=== PATIENT | female | born 1935 | race African-American/Black ===

== ENCOUNTER → 2017-03-17 | Outpatient (CLI) | payer MEDICARE, OTHER ==
[~2017-03-17] MED LIST: ACET-2178 PO; AMLO5TAB4 PO; ASPI-1159 PO; ATOR20TA65 PO; AZEL6DRO5 EACHEYE; FOLI0.8T23 PO; METF500T4 PO; OLOP2.5D EACHEYE; PROAIR HFA INH; SYSOS EACHEYE; VIT D2 1.25 MG PO
== END | disposition home or self-care (01) ==
LOC: MRI 12:22
PROVIDERS: ATTEND Internal Medicine Nephrology
DX: R27.0 Ataxia, unspecified (principal)
CPT/HCPCS: 70551

== ENCOUNTER 2017-06-16 22:06 | Inpatient (IN) | payer MEDICARE, OTHER ==
[~2017-06-16] VITALS: Ht 162.6 cm; Wt 61.2 kg
[2017-06-16] MEDS ORDERED: SODIUM CHLORIDE 0.9% 500 ML IV ONE (23:37)
[2017-06-17] VITALS (8 sets, daily range): BP systolic 108–135; BP diastolic 64–79
[2017-06-17 00:09] LABS: INR 1.1; PARTIAL THROMBOPLASTIN TIME 26.8 sec (23.4-31.0)
[2017-06-17 00:12] LABS: BASOPHILS % 0.6 % (0.0-2.0); EOSINOPHILS % 1.7 % (0.0-5.0); HEMATOCRIT. 39.9 % (36.0-48.0); HEMOGLOBIN. 13.3 g/dL (12.0-16.0); LYMPHOCYTES % 19.8 % (20.0-50.0); MEAN CORPUSCULAR HEMOGLOBIN 27.7 pg (28.0-32.0); MEAN CORPUSCULAR VOLUME 83.2 fL (81.0-99.0); MEAN PLATELET VOLUME 8.4 fl (7.4-10.4); MONOCYTES % 8.1 % (2.0-8.0); NEUTROPHILS % 69.8 % (40.0-76.0); PLATELET 257 x1000/uL (130-400); RED CELL DISTRIBUTION WIDTH 16.4 % (11.6-14.6)
[2017-06-17 00:16] LABS: CARBON DIOXIDE 24 mEq/L (21-32); CHLORIDE 97 mEq/L (98-107); TROPONIN I < 0.02 ng/mL (0.00-0.04)
[2017-06-17] MEDS ORDERED: ASPIRIN 81MG TABLET PO ONE (02:15)
[2017-06-17 03:34] LABS: CLARITY URINE CLEAR (CLEAR); COLOR URINE YELLOW (YELLOW); GLUCOSE URINE NEGATIVE (NEGATIVE); KETONES URINE NEGATIVE (NEGATIVE); LEUKOCYTE ESTERASE URINE 3+ (NEGATIVE); NITRITE URINE NEGATIVE (NEGATIVE); OCCULT BLOOD URINE NEGATIVE (NEGATIVE); PROTEIN URINE NEGATIVE (NEGATIVE); SPECIFIC GRAVITY URINE 1.009 (1.005-1.030); UROBILINOGEN URINE 0.2 E.U./dL (0.2-1.0)
[2017-06-17] MEDS ORDERED: HYDR12.529 PO (09:50)
[2017-06-17] MEDS ORDERED: FAMO20TA8 PO (09:50)
[2017-06-17] MEDS ORDERED: GUAIFENESIN 200MG/10ML SUGAR FREE UDC PO PRN ×2 (12:45→19:30)
[2017-06-17] MEDS ORDERED: DEXTROSE 50% WATER 50ML SYRINGE IV PRN ×2 (12:45→19:30)
[2017-06-17] MEDS ORDERED: ACETAMINOPHEN 325MG TABLET PO PRN ×2 (12:45→19:30)
[2017-06-17] MEDS ORDERED: DIPHENHYDRAMINE 50MG/ML VIAL IV PRN ×2 (12:45→19:30)
[2017-06-17] MEDS ORDERED: MAGNESIUM/ALUMINUM HYDROXIDE/SIMETHICONE 30ML UDC PO PRN ×2 (12:45→19:30)
[2017-06-17] MEDS ORDERED: CLONIDINE 0.1MG TABLET PO PRN ×2 (12:45→19:30)
[2017-06-17] MEDS ORDERED: ONDANSETRON HCL 4MG/2ML VIAL IV PRN ×2 (12:45→19:30)
[2017-06-17] MEDS: INSULIN LISPRO 100 UNITS/ML SUBCUT SCH ×3 (12:50→21:00)
[2017-06-17] MEDS: SODIUM CHLORIDE 0.9% INJ 3ML FLUSH IVF SCH ×2 (14:00→21:24)
[2017-06-17] MEDS: BLOOD SUGAR DIAGNOSTIC STRIP TEST SCH ×2 (17:40→21:24)
[2017-06-17] MEDS ORDERED: ENOXAPARIN 40MG/0.4ML SYR SUBCUT SCH (19:30)
[2017-06-17] MEDS ORDERED: IPRATROPIUM/ALBUTEROL 0.5-3(2.5)MG/3ML NEB INH PRN (19:30)
[2017-06-17] MEDS ORDERED: ENOXAPARIN 30MG/0.3ML SYR SUBCUT SCH (20:30)
[2017-06-17] MEDS ORDERED: FAMOTIDINE 20MG TABLET PO SCH (21:00)
[2017-06-17] MEDS ORDERED: BLOOD SUGAR DIAGNOSTIC STRIP TEST SCH (21:00)
[2017-06-17] MEDS ORDERED: ATORVASTATIN CALCIUM 20MG TABLET PO SCH (21:00)
[2017-06-17] MEDS ORDERED: SODIUM CHLORIDE 0.9% INJ 3ML FLUSH IVF SCH (22:00)
[2017-06-18] VITALS: BP 144/81
[2017-06-18 04:00] VITALS: BP 144/82
[2017-06-18] MEDS: SODIUM CHLORIDE 0.9% INJ 3ML FLUSH IVF SCH (06:08)
[2017-06-18] MEDS: BLOOD SUGAR DIAGNOSTIC STRIP TEST SCH ×2 (06:32→12:35)
[2017-06-18] MEDS: INSULIN LISPRO 100 UNITS/ML SUBCUT SCH ×2 (07:50→12:35)
[2017-06-18 08:00] VITALS: BP_SYST 112; BP_SYST 113; BP_SYST 116; BP_DIAS 66; BP_DIAS 67; BP_DIAS 69
[2017-06-18] MEDS: AMLODIPINE 5MG TABLET PO SCH ×2 (08:56→09:25)
[2017-06-18] MEDS ORDERED: ASPIRIN 81MG EC TABLET PO SCH (09:00)
[2017-06-18] MEDS ORDERED: FOLIC ACID/VITAMIN B COMP W-C TABLET PO SCH (09:00)
[2017-06-18 12:00] VITALS: BP 132/72
[2017-06-18 14:52] VITALS: BP 113/69
== END 2017-06-18 16:36 | disposition home or self-care (01) | DRG 64 ==
LOC: ER 22:06 → 6WST 06-17 02:13 → ENRESERV 06-17 07:51 → CANRESERV 06-17 07:51 → ENRESERV 06-17 07:56
PROVIDERS: ADMIT Internal Medicine; ATTEND Internal Medicine
DX: I63.9 Cerebral infarction, unspecified (principal); G93.41 Metabolic encephalopathy; N17.9 Acute kidney failure, unspecified; E11.649 Type 2 diabetes mellitus with hypoglycemia without coma; E11.22 Type 2 diabetes mellitus with diabetic chronic kidney disease; N18.9 Chronic kidney disease, unspecified; E78.00 Pure hypercholesterolemia, unspecified; R26.9 Unspecified abnormalities of gait and mobility; J45.909 Unspecified asthma, uncomplicated; I12.9 Hypertensive chronic kidney disease with stage 1 through stage 4 chronic kidney disease, or unspecified chronic kidney disease; Z87.891 Personal history of nicotine dependence; Z88.1 Allergy status to other antibiotic agents; Z88.5 Allergy status to narcotic agent; Z88.0 Allergy status to penicillin; Z79.82 Long term (current) use of aspirin; Z79.84 Long term (current) use of oral hypoglycemic drugs; Z79.899 Other long term (current) drug therapy
CPT/HCPCS: 36415; 70450; 70544; 70553; 71010; 80053; 81001; 82962; 83036; 83735; 83880; 84484; 85025; 85610; 85730; 87086; 93005; 93306; 93880; 93970; 96360; 97116; 97162; 97166; 99285; J1650; J7040